=== PATIENT | female | born 1985 | race Caucasian/White ===

== ENCOUNTER 2016-08-27 21:56 | Emergency (ER) | payer OTHER ==
[~2016-08-27 21:56] MED LIST: ACET50TA PO; IBUP80TA PO; VITAPRTA PO
[2016-08-27] MEDS ORDERED: IBUPROFEN 600 MG TAB As Ordered ONE (23:37)
--- NOTE | 2016-08-28 00:15 | EDDOCDS ---
Nurse's Notes [facility] Name: Sunshine Ramsay Age: 30 yrs Sex: Female : 1985 Arrival Date: 08/27/2016 Time: 21:56 Bed PR1 / Private MD: KOFFI Toscano Diagnosis: Strain of muscle and tendon of front wall of thorax-right Presentation: 08/27 22:07 Presenting complaint: Patient states: that she has had chest pain for the past 2 weeks ms18 and increased pain upon inspiration. Aspirin was not taken prior to arrival. Adult Sepsis Screening: The patient does not have new or worsening altered mentation. Patient's respiratory rate is less than 22. Systolic blood pressure is greater than 100. Patient has a qSOFA score of 0- Negative Sepsis Screen. Suicide/Homicide risk assessment- the patient denies having any suicidal and/or homicidal ideations and does not present with any other emotional, behavioral or mental health complaints. 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 Transition of care: patient was not received from another setting of care. 22:07 Acuity: MANUEL Level 4 ms18 22:07 Method Of Arrival: Walkin/Carried/Asstd ms18 Triage Assessment: 22:09 General: Appears in no apparent distress, uncomfortable, Behavior is appropriate for ms18 age, cooperative. Pain: Location: diaphragm Pain currently is 7 out of 10 on a pain scale. Quality of pain is described as sharp, throbbing. HIV screening NA for this visit Offered previously. Neurological: No deficits noted. Cardiovascular: Chest pain is described as diffuse, quality is stabbing, radiates Does not radiate. episodes are intermittent began 2 weeks ago. Respiratory: Airway is patent Respiratory effort is even, unlabored, Denies shortness of breath. Derm: Skin is pink, warm & dry. 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 none - PMHx: none; - PSHx: none; - Social history: Smoking status: Patient states was never smoker of tobacco. No barriers to communication noted, The patient speaks fluent Syriac. - Family history: Not pertinent. - : The pt / caregiver states he / she is not on anticoagulants. Home medication list is obtained from the patient. - Exposure Risk Screening:: None identified. Screenin/03 00:12 Screening information is obtained from the patient. Fall risk: No risks identified. jmb Assistance ADL's: requires no assistance with activities of daily living. Abuse/DV Screen: The patient / caregiver reports he/she is: not in a situation that causes fear, pain or injury. Nutritional screening: No deficits noted. Advance Directives: Currently, there is no health care proxy. There is no active DNR order. There is no living will. There is no Power of Customer Service Teller. home support is adequate. Assessment: 00:12 General: Patient instructed on discharge instructions. Patient asked if there were any b questions regarding discharge, patient stated no. Patient signed discharge instructions. Patient discharged in stable condition.. Cardiovascular: Rhythm is regular. Vital Signs: 08/27 21:59 BP 112 / 63; Pulse 72; Resp 18 S; Temp 97.0(O); Pulse Ox 100% on R/A; Weight 65.32 kg gr2 (R); Height 65 in. (165.10 cm) (R); Pain 7/10; 08/28 00:12 BP 110 / 60; Pulse 78; Resp 18; Temp 98.0(O); Pulse Ox 99% on R/A; Pain 2/10; jmb 08/27 21:59 Body Mass Index 23.96 (65.32 kg, 165.10 cm) gr2 Vitals: 08/27 21:59 Log In Time: August 27, 2016 at 21:59. gr2 ED Course: 21:58 Patient visited by Larry Butler. gr2 21:58 Dorcas [facility] is Private Physician. gr2 21:58 Patient moved to Waiting gr2 21:59 Patient visited by Larry Butler. gr2 22:00 Patient moved to Pre RCE gr2 22:09 Triage Initiated ms18 22:56 Patient moved to Triage 1 jmb 23:21 John Amaro PA is PHCP. mo1 23:21 Wilfrid Guadarrama MD is Attending Physician. mo1 23:23 Patient visited by John Amaro PA. mo1 23:39 Patient moved to [facility] 23:43 [facility] Payment Agreement was scanned into [employer] and attached to record. lja 23:44 Patient name changed from Sunshine\S\\S\[place]\S\ to Sunshine\S\ \S\[place]. EDMS 08/28 00:04 KOFFI Toscano is Referral Physician. mo1 00:05 Patient moved to cz 00:12 The patient / caregiver is instructed regarding the plan of care and ED course. jmb deferred by provider. 00:12 No IV's were initiated during this patient's visit. No procedures done that require jmb assistance. Administered Medications: 08/27 23:38 Drug: Ibuprofen 600 mg [ibuprofen 600 mg tablet (1 tabs)] Route: PO; cz Order Results: There are currently no results for this order. Outcome: 08/28 00:04 Discharge ordered by Provider. mo1 00:12 Discharge Assessment: Patient awake, alert and oriented x 3. No cognitive and/or jmb functional deficits noted. Patient verbalized understanding of disposition instructions. Patient awake and alert. obeys commands, Oriented to person, place and time. Patient verbalized understanding of disposition instructions. Patient has no functional deficits. patient administered narcotics - no. The following High Risk Discharge criteria are identified: None. Discharged to home ambulatory, with significant other. Condition: stable. Discharge instructions given to patient, Instructed on discharge instructions, follow up and referral plans. medication usage, Demonstrated understanding of instructions, medications, Pt was receptive of discharge instructions/ teaching. No special radiology studies were completed. Property sent home with patient. 00:15 Patient left the ED. martyb Signatures: Dispatcher [employer] EDOK Stephen Milligan RN RN cz Larry Butler gr2 John Amaro PA PA mo1 Gaudencio Irwin RN RN jmb Smith, Mallory, RN RN ms18 Korin Tavares MTDD
--- NOTE | 2016-08-28 00:15 | EDDOCDS ---
Physician Documentation [facility] Name: Sunshine Ramsay Age: 30 yrs Sex: Female : 1985 Arrival Date: 08/27/2016 Time: 21:56 Bed PR / Private MD: KOFFI Toscano Disposition: 08/28/16 00:04 Discharged to Home/Self Care. Impression: Strain of muscle and tendon of front wall of thorax - right. - Condition is Stable. - Discharge Instructions: Chest Wall Pain, Cough, Adult, [id number]. - Prescriptions for Robaxin 500 mg Oral Tablet - take 2 tablet by ORAL route every 6 hours As needed; 40 tablet. - Medication Reconciliation, Local Pharmacy Hours form. - Follow up: KOFFI Toscano; When: Call to arrange an appointment; Reason: Recheck today's complaints, Continuance of care. - Problem is new. - Symptoms are unchanged. Historical: - Allergies: no known allergies; - Home Meds: 1. none - PMHx: none; - PSHx: none; - Social history: Smoking status: Patient states was never smoker of tobacco. No barriers to communication noted, The patient speaks fluent Malagasy. - Family history: Not pertinent. - : The pt / caregiver states he / she is not on anticoagulants. Home medication list is obtained from the patient. - Exposure Risk Screening:: None identified. 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 (165.10 cm) (R); Pain 7/10; 08/28 00:12 BP 110 / 60; Pulse 78; Resp 18; Temp 98.0(O); Pulse Ox 99% on R/A; Pain 2/10; jmb 08/27 21:59 Body Mass Index 23.96 (65.32 kg, 165.10 cm) gr2 MDM: 08/27 23:36 Ibuprofen 600 mg PO once ordered. mo1 23:37 Rib Unilat W/PA Chest Only Ordered. EDMS 23:43 [facility] Payment Agreement was scanned into [employer] and attached to record. [facility] 23:43 Financial registration complete. a Administered Medications: 23:38 Drug: Ibuprofen 600 mg [ibuprofen 600 mg tablet (1 tabs)] Route: PO; cz Signatures: Dispatcher [employer] John Donnelly PA PA mo1 Gaudencio IrwinRN RN Lucie Martinez RN RN ms18 Arel, Stephen Akbar RN cz The chart was reviewed and I authenticate all verbal orders and agree with the evaluation and treatment provided.Attachments: 23:43 [facility] Payment Agreement [facility] MTDD
--- NOTE | 2016-08-28 15:14 | REP ---
UNILATERAL RIGHT RIBS, PA CHEST: HISTORY: Cough. The lungs are clear. The heart is normal in size. The pulmonary vasculature is normal in appearance. The bony structure is intact. IMPRESSION: No acute disease. Signed by Adeel Weaver MD 08/28/2016 03:15 P
--- NOTE | 2016-08-30 01:15 | EDDOCDS ---
Physician Documentation [facility] Name: Sunshine Ramsay Age: 30 yrs Sex: Female : 1985 Arrival Date: 08/27/2016 Time: 21:56 Bed PR / Private MD: KOFFI Toscano Disposition: 08/28/16 00:04 Discharged to Home/Self Care. Impression: Strain of muscle and tendon of front wall of thorax - right. - Condition is Stable. - Discharge Instructions: Chest Wall Pain, Cough, Adult, [id number]-[id number]. - Prescriptions for Robaxin 500 mg Oral Tablet - take 2 tablet by ORAL route every 6 hours As needed; 40 tablet. - Medication Reconciliation, Local Pharmacy Hours form. - Follow up: KOFFI Toscano; When: Call to arrange an appointment; Reason: Recheck today's complaints, Continuance of care. - Problem is new. - Symptoms are unchanged. Historical: - Allergies: no known allergies; - Home Meds: 1. none - PMHx: none; - PSHx: none; - Social history: Smoking status: Patient states was never smoker of tobacco. No barriers to communication noted, The patient speaks fluent Sri Lankan. - Family history: Not pertinent. - : The pt / caregiver states he / she is not on anticoagulants. Home medication list is obtained from the patient. - Exposure Risk Screening:: None identified. 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 (165.10 cm) (R); Pain 7/10; 08/28 00:12 BP 110 / 60; Pulse 78; Resp 18; Temp 98.0(O); Pulse Ox 99% on R/A; Pain 2/10; jmb 08/27 21:59 Body Mass Index 23.96 (65.32 kg, 165.10 cm) gr2 MDM: 08/27 23:36 Ibuprofen 600 mg PO once ordered. mo1 23:37 Rib Unilat W/PA Chest Only Ordered. EDMS 23:43 [facility] Payment Agreement was scanned into [employer] and attached to record. [facility] 23:43 Financial registration complete. [facility] 08/28 04:43 T-Sheet-- Draft Copy was scanned into [employer] and attached to record. torres Administered Medications: 08/27 23:38 Drug: Ibuprofen 600 mg [ibuprofen 600 mg tablet (1 tabs)] Route: PO; cz Signatures: Dispatcher [employer] John Donnelly PA PA mo1 Gaudencio Irwin RN RN Lucie Martinez RN RN ms18 Arel, Stephen Akbar RN cz The chart was reviewed and I authenticate all verbal orders and agree with the evaluation and treatment provided.Attachments: 23:43 [facility] Payment Agreement 08/28 04:43 T-Sheet-- Draft Copy [facility] Chart Complete MTDD
--- NOTE | 2016-08-30 01:15 | EDDOCDS ---
Physician Documentation [facility] Name: Sunshine Ramsay Age: 30 yrs Sex: Female : 1985 Arrival Date: 08/27/2016 Time: 21:56 Bed PR / Private MD: KOFFI Toscano Disposition: 08/28/16 00:04 Discharged to Home/Self Care. Impression: Strain of muscle and tendon of front wall of thorax - right. - Condition is Stable. - Discharge Instructions: Chest Wall Pain, Cough, Adult, Xkvh-[id number]. - Prescriptions for Robaxin 500 mg Oral Tablet - take 2 tablet by ORAL route every 6 hours As needed; 40 tablet. - Medication Reconciliation, Local Pharmacy Hours form. - Follow up: KOFFI Toscano; When: Call to arrange an appointment; Reason: Recheck today's complaints, Continuance of care. - Problem is new. - Symptoms are unchanged. Historical: - Allergies: no known allergies; - Home Meds: 1. none - PMHx: none; - PSHx: none; - Social history: Smoking status: Patient states was never smoker of tobacco. No barriers to communication noted, The patient speaks fluent [place] Of [place]. - Family history: Not pertinent. - : The pt / caregiver states he / she is not on anticoagulants. Home medication list is obtained from the patient. - Exposure Risk Screening:: None identified. 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 (165.10 cm) (R); Pain 7/10; 08/28 00:12 BP 110 / 60; Pulse 78; Resp 18; Temp 98.0(O); Pulse Ox 99% on R/A; Pain 2/10; jmb 08/27 21:59 Body Mass Index 23.96 (65.32 kg, 165.10 cm) gr2 MDM: 08/27 23:36 Ibuprofen 600 mg PO once ordered. mo1 23:37 Rib Unilat W/PA Chest Only Ordered. EDMS 23:43 [facility] [place] Payment Agreement was scanned into [employer] and attached to record. [facility] 23:43 Financial registration complete. [facility] 08/28 04:43 T-Sheet-- Draft Copy was scanned into [employer] and attached to record. torres Administered Medications: 08/27 23:38 Drug: Ibuprofen 600 mg [ibuprofen 600 mg tablet (1 tabs)] Route: PO; cz Signatures: Dispatcher [employer] John Donnelly PA PA mo1 Gaudencio Irwin RN RN Lucie Martinez RN RN ms18 Arel, Stephen Akbar RN cz The chart was reviewed and I authenticate all verbal orders and agree with the evaluation and treatment provided.Attachments: 23:43 [facility] Payment Agreement 08/28 04:43 T-Sheet-- Draft Copy [facility] Chart Complete MTDD
--- NOTE | 2016-08-30 01:15 | EDDOCDS ---
Nurse's Notes [facility] Name: Sunshine Ramsay Age: 30 yrs Sex: Female : 1985 Arrival Date: 08/27/2016 Time: 21:56 Bed PR1 / Private MD: KOFFI Toscano Diagnosis: Strain of muscle and tendon of front wall of thorax-right Presentation: 08/27 22:07 Presenting complaint: Patient states: that she has had chest pain for the past 2 weeks ms18 and increased pain upon inspiration. Aspirin was not taken prior to arrival. Adult Sepsis Screening: The patient does not have new or worsening altered mentation. Patient's respiratory rate is less than 22. Systolic blood pressure is greater than 100. Patient has a qSOFA score of 0- Negative Sepsis Screen. Suicide/Homicide risk assessment- the patient denies having any suicidal and/or homicidal ideations and does not present with any other emotional, behavioral or mental health complaints. 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 Transition of care: patient was not received from another setting of care. 22:07 Acuity: MANUEL Level 4 ms18 22:07 Method Of Arrival: Walkin/Carried/Asstd ms18 Triage Assessment: 22:09 General: Appears in no apparent distress, uncomfortable, Behavior is appropriate for ms18 age, cooperative. Pain: Location: diaphragm Pain currently is 7 out of 10 on a pain scale. Quality of pain is described as sharp, throbbing. HIV screening NA for this visit Offered previously. Neurological: No deficits noted. Cardiovascular: Chest pain is described as diffuse, quality is stabbing, radiates Does not radiate. episodes are intermittent began 2 weeks ago. Respiratory: Airway is patent Respiratory effort is even, unlabored, Denies shortness of breath. Derm: Skin is pink, warm & dry. 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 none - PMHx: none; - PSHx: none; - Social history: Smoking status: Patient states was never smoker of tobacco. No barriers to communication noted, The patient speaks fluent Thai. - Family history: Not pertinent. - : The pt / caregiver states he / she is not on anticoagulants. Home medication list is obtained from the patient. - Exposure Risk Screening:: None identified. Screenin/03 00:12 Screening information is obtained from the patient. Fall risk: No risks identified. jmb Assistance ADL's: requires no assistance with activities of daily living. Abuse/DV Screen: The patient / caregiver reports he/she is: not in a situation that causes fear, pain or injury. Nutritional screening: No deficits noted. Advance Directives: Currently, there is no health care proxy. There is no active DNR order. There is no living will. There is no Power of School Guard. home support is adequate. Assessment: 00:12 General: Patient instructed on discharge instructions. Patient asked if there were any b questions regarding discharge, patient stated no. Patient signed discharge instructions. Patient discharged in stable condition.. Cardiovascular: Rhythm is regular. Vital Signs: 08/27 21:59 BP 112 / 63; Pulse 72; Resp 18 S; Temp 97.0(O); Pulse Ox 100% on R/A; Weight 65.32 kg gr2 (R); Height 65 in. (165.10 cm) (R); Pain 7/10; 08/28 00:12 BP 110 / 60; Pulse 78; Resp 18; Temp 98.0(O); Pulse Ox 99% on R/A; Pain 2/10; jmb 08/27 21:59 Body Mass Index 23.96 (65.32 kg, 165.10 cm) gr2 Vitals: 08/27 21:59 Log In Time: August 27, 2016 at 21:59. gr2 ED Course: 21:58 Patient visited by Larry Butler. gr2 21:58 Dorcas [facility] is Private Physician. gr2 21:58 Patient moved to Waiting gr2 21:59 Patient visited by Larry Butler. gr2 22:00 Patient moved to Pre RCE gr2 22:09 Triage Initiated ms18 22:56 Patient moved to Triage 1 jmb 23:21 John Amaro PA is PHCP. mo1 23:21 Wilfrid Guadarrama MD is Attending Physician. mo1 23:23 Patient visited by John Amaro PA. mo1 23:39 Patient moved to [facility] 23:43 [facility] Payment Agreement was scanned into [employer] and attached to record. lja 23:44 Patient name changed from Sunshine\S\\S\[place]\S\ to Sunshine\S\ \S\[place]. EDMS 08/28 00:04 KOFFI Toscano is Referral Physician. mo1 00:05 Patient moved to cz 00:12 The patient / caregiver is instructed regarding the plan of care and ED course. jmb deferred by provider. 00:12 No IV's were initiated during this patient's visit. No procedures done that require jmb assistance. 04:43 T-Sheet-- Draft Copy was scanned into [employer] and attached to record. [facility] 15:51 Rib Unilat W/PA Chest Only Returned. EDMS Administered Medications: 08/27 23:38 Drug: Ibuprofen 600 mg [ibuprofen 600 mg tablet (1 tabs)] Route: PO; cz Order Results: Radiology Order: Rib Unilat W/PA Chest Only Test: Rib Unilat W/PA Chest Only REASON FOR EXAMINATION: Cough; UNILATERAL RIGHT RIBS, PA CHEST:; ; HISTORY: Cough.; ; The lungs are clear. The heart is normal in size. The pulmonary vasculature is; normal in appearance. The bony structure is intact.; ; IMPRESSION:; ; No acute disease.; ; ; Signed by; Adeel Weaver MD 08/28/2016 03:15 P; Outcome: 08/28 00:04 Discharge ordered by Provider. mo1 00:12 Discharge Assessment: Patient awake, alert and oriented x 3. No cognitive and/or jmb functional deficits noted. Patient verbalized understanding of disposition instructions. Patient awake and alert. obeys commands, Oriented to person, place and time. Patient verbalized understanding of disposition instructions. Patient has no functional deficits. patient administered narcotics - no. The following High Risk Discharge criteria are identified: None. Discharged to home ambulatory, with significant other. Condition: stable. Discharge instructions given to patient, Instructed on discharge instructions, follow up and referral plans. medication usage, Demonstrated understanding of instructions, medications, Pt was receptive of discharge instructions/ teaching. No special radiology studies were completed. Property sent home with patient. 00:15 Patient left the ED. jmb Signatures: Dispatcher [employer] EDMT Stephen Milligan RN RN cz Larry Butler gr2 John Amaro PA PA mo1 Gaudencio Irwin RN RN Lucie Martinez,[place] RN ms18 Arel, Korin macdonald Chart Complete MTDD
== END 2016-08-28 00:15 | disposition home or self-care (01) ==
LOC: M ED 21:56
DX: S29.011A Strain of muscle and tendon of front wall of thorax, initial encounter (principal); X58.XXXA Exposure to other specified factors, initial encounter; Y92.019 Unspecified place in single-family (private) house as the place of occurrence of the external cause; Y93.89 Activity, other specified; Y99.8 Other external cause status

== ENCOUNTER 2017-07-26 05:42 | Emergency (ER) | payer OTHER ==
[~2017-07-26] VITALS: Ht 165.1 cm; Wt 62.0 kg
--- NOTE | 2017-07-26 08:53 | REP ---
Right anterior chest wall ultrasound: History: Painful lump below the right breast extending from the midline. Sonographic findings: Scanning over the palpable area along the right costal margin demonstrates normal costal cartilages in the right parasternal region. No soft tissue cyst, mass or other abnormality is seen. Impression: Negative soft-tissue ultrasound. No mass lesion seen. Directed scanning is along the parasternal and right costal margin region. Normal costal cartilage is seen. Signed by Gildardo Abbasi MD 07/26/2017 09:37 A
[2017-07-26 09:06] VITALS: BP 101/65
== END 2017-07-26 09:07 | disposition home or self-care (01) ==
LOC: M ED 05:42
DX: R07.89 Other chest pain (principal); R59.1 Generalized enlarged lymph nodes

== ENCOUNTER 2018-06-02 02:53 | Emergency (ER) | payer OTHER ==
[2018-06-02 04:13] LABS: INFLUENZA A AMPLIFICATION NEGATIVE (NEGATIVE); INFLUENZA B AMPLIFICATION NEGATIVE (NEGATIVE)
== END 2018-06-02 04:26 | disposition home or self-care (01) ==
LOC: M ED 02:53
DX: J06.9 Acute upper respiratory infection, unspecified (principal); J40 Bronchitis, not specified as acute or chronic
CPT/HCPCS: 71046

== ENCOUNTER 2019-01-16 19:01 | Emergency (ER) | payer OTHER ==
[~2019-01-16] VITALS: Ht 165.1 cm; Wt 71.8 kg
[~2019-01-16 19:01] MED LIST changes: -ACET50TA PO; +MAPA500T2 PO; +NEXP1IMP SC; +PRED20TA PO; +ZITHTAB PO
[2019-01-16] MEDS ORDERED: IBUP200C25 PO (19:07)
[2019-01-16] MEDS ORDERED: METHOCARBAMOL 750 MG TAB PO ONE (20:30)
[2019-01-16] MEDS ORDERED: LIDOCAINE 5% (LIDODERM) PATCH TD ONE (20:30)
[2019-01-16] MEDS ORDERED: IBUPROFEN 600 MG TAB PO ONE (20:30)
[2019-01-16] MEDS ORDERED: ONDANSETRON 4 MG ORAL DISINTEGRATING TAB (Q0162 PER 1MG) PO ONE (20:45)
[2019-01-16] MEDS ORDERED: **NOTE PATIENT COMMENT** MISC XX SCH (21:00)
[2019-01-16] MEDS ORDERED: IBUP-1022 PO (22:02)
[2019-01-16] MEDS ORDERED: ROBA500T PO (22:02)
[2019-01-16 22:03] VITALS: BP 97/52
--- NOTE | 2019-01-17 09:38 | REP ---
Clinical: Trauma/fall with acute tenderness . Technique: AP, lateral, bilateral oblique, and coned-down views. Findings: Alignment and lordosis is maintained. The vertebral bodies including transverse process and spinous processes are intact and normal. There is no evidence for acute fracture / compression injury or subluxation. No evidence for spondylolysis or spondylolisthesis. No significant degenerative change is noted. Impression: No acute fracture / compression injury or subluxation. Electronically Signed by Michael Tobias MD 01/17/2019 09:29 A
--- NOTE | 2019-01-17 09:39 | REP ---
Clinical: Trauma/fall with thoracic pain. Technique: AP, lateral, and swimmers views. Findings: Alignment and kyphosis is maintained. Vertebral bodies intact. No acute fracture / compression injury or subluxation. No degenerative changes. Paravertebral soft tissues are normal. Impression: Normal thoracic spine series. No acute fracture / compression injury or subluxation. Electronically Signed by Michael Tobias MD 01/17/2019 09:30 A
== END 2019-01-16 22:09 | disposition home or self-care (01) ==
LOC: M ED 19:01
DX: S20.229A Contusion of unspecified back wall of thorax, initial encounter (principal); W10.8XXA Fall (on) (from) other stairs and steps, initial encounter; Y92.89 Other specified places as the place of occurrence of the external cause; Z79.3 Long term (current) use of hormonal contraceptives
CPT/HCPCS: 72072; 72110; 99283; Q0162

== ENCOUNTER → 2020-01-07 | Outpatient (CLI) | payer OTHER ==
[~2020-01-07] MED LIST changes: +IBUP-1022 PO; +IBUP200C25 PO; +ROBA500T PO
--- NOTE | 2020-01-08 03:15 | REP ---
Clinical: Dating and viability. Technique: Transabdominal first trimester obstetrical ultrasound with color Doppler evaluation. Findings: Ultrasound examination demonstrates single live early intrauterine . CRL of 4.2 cm corresponds to 11 weeks 0 days gestational age with estimated date of delivery 07/28/2020. heart rate equals 175 beats per minute. Impression: Single live early intrauterine at 11 weeks 0 days gestational age. Complete anatomical assessment should be performed at 19-20 weeks. Electronically Signed by Michael Tobias MD 01/08/2020 03:06 A
== END ==
LOC: M RAD 15:23
PROVIDERS: ATTEND Nurse Practitioner Women's Health
DX: Z34.91 Encounter for supervision of normal pregnancy, unspecified, first trimester (principal)

== ENCOUNTER 2020-02-24 18:01 | Emergency (ER) | payer OTHER ==
[2020-02-24] MEDS ORDERED: NS 1,000 ML IV ONE ×2 (18:30→20:30)
[2020-02-24 18:39] LABS: BASO % 0.4 % (0.0-1.0); EOS # 0.2 10^3/uL (0.0-0.5); EOS % 1.7 % (0.0-3.0); HEMATOCRIT 32.6 % (36.0-47.0); HEMOGLOBIN 11.3 g/dl (12.0-15.5); LYMPH # 1.7 10^3/uL (1.5-5.0); LYMPH % 15.8 % (24.0-44.0); MEAN CORPUSCULAR HEMOGLOBIN 31.1 pg (27.0-33.0); MEAN CORPUSCULAR HGB CONC 34.7 g/dl (32.0-36.5); MEAN CORPUSCULAR VOLUME 89.8 fl (80.0-96.0); MONO # 0.7 10^3/uL (0.0-0.8); MONO % 6.8 % (0.0-5.0); NEUTROPHILS % 74.1 % (36.0-66.0); PLATELET COUNT, AUTOMATED 195 10^3/uL (150-450); RED BLOOD COUNT 3.63 10^6/uL (4.00-5.40); WHITE BLOOD COUNT 10.7 10^3/uL (4.0-10.0)
[2020-02-24 19:11] LABS: ETHYL ALCOHOL (ETHANOL) < 0.003 % (0.000-0.010); FREE T4 0.92 NG/DL (0.76-1.46); MAGNESIUM LEVEL 1.8 MG/DL (1.8-2.4)
[2020-02-24] MEDS ORDERED: METOCLOPRAMIDE INJ 10MG/2ML VIAL (J2765 PER 1) IV ONE (20:30)
[2020-02-24] MEDS ORDERED: ACETAMINOPHEN *IV* 1,000 MG in IV 1 EA IV ONE (20:30)
[2020-02-24 20:36] LABS: AMPHETAMINES LEVEL URINE NEGATIVE (NEGATIVE); BARBITURATES URINE NEGATIVE (NEGATIVE); BENZODIAZEPINES URINE NEGATIVE (NEGATIVE); CANNABINOIDS URINE NEGATIVE (NEGATIVE); COCAINE METABOLITE URINE NEGATIVE (NEGATIVE); METHADONE URINE NEGATIVE (NEGATIVE); OPIATES URINE NEGATIVE (NEGATIVE); PHENCYCLIDINE URINE NEGATIVE (NEGATIVE)
--- NOTE | 2020-02-24 22:04 | REPVR ---
PROCEDURE INFORMATION: Exam: US After First Trimester, Transabdominal Exam date and time: 02/24/2020 9:02 PM Age: 34 years old Clinical indication: Other: Adnexal pain; Gestational age or lmp: 17wks; ; Additional info: Pelvic pain TECHNIQUE: Imaging protocol: Real-time transabdominal obstetrical ultrasound of the maternal pelvis and a second or third trimester with image documentation. COMPARISON: CR Spine. Lumbosacral, complete 01/16/2019 8:39 PM FINDINGS: Gestation: Single live intrauterine gestation. Heart rate: 142 bpm. Presentation: Live intrauterine gestation in breech position. Placenta: Unremarkable. No subchorionic bleed. Placenta is anterior. Amniotic fluid index: 12.8 cm. DOPPLER: Umbilical artery Doppler: Umbilical cord SD ratio: 2.93. MATERNAL ANATOMY: Uterus: Unremarkable. Cervix: Cervix measures 3.1 cm. No cervical funneling. Right adnexa: Ovary is obscured by overlying bowel gas. Left adnexa: Ovary is obscured by overlying bowel gas. IMPRESSION: Unremarkable obstetric ultrasound. Electronically signed by: Gonzalez Ha On 02/24/2020 22:04:40 PM
[2020-02-24] MEDS ORDERED: REGL10TA6 PO ×2 (22:34→23:43)
[2020-02-24 23:45] VITALS: BP 100/56
--- NOTE | 2020-02-25 06:26 | ECGEPIP ---
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
== END 2020-02-24 23:52 | disposition home or self-care (01) ==
LOC: EDBD 18:01 → M ED 18:01
DX: O99.352 Diseases of the nervous system complicating pregnancy, second trimester (principal); G43.909 Migraine, unspecified, not intractable, without status migrainosus; R55 Syncope and collapse; Z3A.17 17 weeks gestation of pregnancy
CPT/HCPCS: 36415; 76815; 80047; 80307; 81001; 83735; 84439; 84443; 85025; 93005; 93041; 94760; 96361; 96374; 96375; 99285; G0480; J0131; J2765

== ENCOUNTER 2020-08-04 19:16 | Inpatient (IN) | payer OTHER ==
[~2020-08-04] VITALS: Ht 165.1 cm; Wt 103.8 kg
[~2020-08-04 19:16] MED LIST changes: +REGL10TA6 PO
[2020-08-04] MEDS ORDERED: PRENTAB9 PO (20:43)
[2020-08-04] MEDS ORDERED: LIDO1.1P TOP (20:43)
[2020-08-04] MEDS ORDERED: LR 1,000 ML IV SCH (21:13)
[2020-08-04] MEDS ORDERED: OXYTOCIN DRIP 30 UNITS in IV 1 EA IV SCH (21:15)
--- NOTE | 2020-08-04 21:28 | HPEPDOC ---
Obstetrical History & Physical General Date of Admission Aug 04, 2020 at 19:16 History of Present Illness 34yo at 41+0 by 11wk US DORINDA [id number] presents for IOL for late term. Dennys ed VB, LOF, decreased FM, contractions. Denied n/b/d, cp, sob, fermin, visual changes, f/c, vaginal dc, urinary sx. 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 Past Medical History Medical History anxiety, depression, chronic back pain / degenerating discs, chronic hip pain, cervical dysplasia Surgical History: Denies/None Family History Significant Family History: No pertinent family hx Social History Marital Status: Family situation: Spouse/partner home * Smoker: non-smoker Alcohol: Denies Drugs: denies Imunizations Tdap status: current Influenza Status: needs Allergies Coded Allergies: No Known Allergies (Unverified , 06/02/18) Medications Scheduled Lidocaine/Menthol (Lidopatch) 1 Each Adh..patch, 1 APLCT TOP BID for Diabetes No.137/Iron/Folic Acd ( Vitamin Tablet) 1 Each Tablet, 1 TAB PO DAILY Physical Examination Physical Examination GENERAL: Alert and oriented times three. BREAST: . ABDOMEN: Gravid and non-tender to touch. FETUS: vertex by US HEART RATE: Regular rate and rhythm. LUNGS: Clear to auscultation (CTA). EXTREMITIES: No edema. No clonus. Laboratory Data [facility] Laboratory Tests 2 08/04/20 19:32: Serology Scanned Report Hepatitis B Testing Urine Culture: No Growth Pertinent Laboratoy Data Blood Type: O+ RBC Antibody Screen: Negative HIV: Negative Hepatitis B: Negative Rapid Plasma Reagin: Nonreactive Rubella: Immune Varicella: Immune Chlamydia/Gonorrhea: Negative Group B Streptococcus: Negative Quad Screen Test: Negative Cystic Fibrosis: Negative Anatomy Ultrasound Placenta Location: Anterior Normal Anatomy: Yes Placenta Previa: No Estimated Weight (grams): 3800 Vaginal Examination Dilation: 3 cm Effacement: 50% Station: -3 Presentation: Cephalic presentation (by US) Assessment Heart Rate (FHR): 140 Variability: Moderate Accelerations: Positive Decelerations: None Tocometer Contractions: Yes Frequency: irregular Multi-drug resistant Organism: No history of MDRO Assessment/Plan Assessment 34yo at 41+0 presents for IOL for late term. CAT I tracing, reactive, normal VS. SVE /-3. APC 1. AMA - normal quad and US 2. elevated 1h normal 3h GTT 3. cervical dysplasia - needs cotesting 4. chronic pain / DDD 5. anxiety/depression - sees 6. excessive weight gain 67# Rh pos, GBS neg, placenta anterior, EFW 3800, ceph by US, PP 7#7 Plan Admit and orient. Examination Supervisor and consent. Diet: clears Group B Streptococcus (GBS) [negative]. Labs and intravenous (IV) per unit protocol. Counseled on Pitocin and induction of labor (IOL). Lactated Ringers (LR): Bolus mL, then at mL/hr. Anticipate [normal spontaneous delivery ()]. C-S as appropriate. STEFANO DESAI DO Aug 04, 2020 21:28
[2020-08-04 21:33] LABS: HEMATOCRIT 36.7 % (36.0-47.0); MEAN CORPUSCULAR HEMOGLOBIN 29.2 pg (27.0-33.0); MEAN CORPUSCULAR HGB CONC 32.7 g/dl (32.0-36.5); MEAN CORPUSCULAR VOLUME 89.3 fl (80.0-96.0); PLATELET COUNT, AUTOMATED 207 10^3/uL (150-450); RED BLOOD COUNT 4.11 10^6/uL (4.00-5.40); WHITE BLOOD COUNT 10.5 10^3/uL (4.0-10.0)
[2020-08-05] VITALS (21 sets, daily range): BP systolic 101–174; BP diastolic 56–96
[2020-08-05] MEDS ORDERED: FENTANYL 2MCG/ML ROPIVACAINE 0.2% IN 0.9% NACL 100ML IVBAG As Ordered ONE (00:44)
[2020-08-05] MEDS ORDERED: REFRIGERATOR IV KEYS XX PRN (01:00)
[2020-08-05] MEDS ORDERED: FENTANYL/ROPIVACAINE/NACL BAG 100 ML EPIDURAL SCH (01:00)
[2020-08-05] MEDS ORDERED: NALOXONE INJ 0.4MG/1ML VIAL (J2310 PER 1MG) IV PRN (01:00)
[2020-08-05] MEDS ORDERED: EPIDURAL COMMENT XX SCH (01:00)
[2020-08-05] MEDS ORDERED: ONDANSETRON 4MG/2ML VIAL IV PRN ×2 (01:00→02:15)
[2020-08-05] MEDS ORDERED: LACTATED RINGER'S 1000 ML IV PRN (01:00)
[2020-08-05] MEDS ORDERED: diphenhydrAMINE 50MG/ML VIAL (J1200) IV PRN (01:00)
[2020-08-05] MEDS ORDERED: ePHEDrine SULFATE 25 MG/5 ML(5MG/ML) SYRINGE IV PRN (01:00)
[2020-08-05] MEDS ORDERED: EPIDURAL/PCA KEYS XX PRN (01:00)
--- NOTE | 2020-08-05 01:55 | IPNPDOC ---
Obstetrical Progress Note Date of Service Aug 05, 2020 Subjective Nursing update and strip note. Assessment Heart Rate (FHR): 130 Variability: Moderate Accelerations: Positive Decelerations: None Heart Rate Tracing: Category I Tocometer Contractions: Yes Frequency: regular Sterile Vaginal Examination Dilation: 4 cm Effacement (%): 80% Station: -2 (exam per RN) Assessment and Plan Status: Reassuring Group B Streptococcus: Negative Anticipate: Vaginal Delivery Additional Comments CAT I tracing reactive. Patient progressing well with pitocin she SROMed at 0040 clear per RN. RN exam 4/80/-2 and she reports patient has increased pressure and pain and has received epidural. Will reassess in 4-6h or sooner if clinically indicated. STEFANO DESAI DO Aug 05, 2020 01:55
[2020-08-05] MEDS ORDERED: ONDANSETRON 4MG/2ML VIAL As Ordered ONE (02:22)
[2020-08-05 04:38] LABS: CORD GAS ABE A -4.5; CORD GAS ABE V -3.8; CORD GAS HCO3 A 21.3 MEQ/L; CORD GAS HCO3 V 21.4 MEQ/L; CORD GAS O2 SAT A 89.2 %; CORD GAS PCO2 A 41.7 mmHg; CORD GAS PCO2 V 39.4 mmHg; CORD GAS PH A 7.326 UNITS; CORD GAS PH V 7.352 UNITS; CORD GAS PO2 A 48.7 mmHg; CORD GAS PO2 V 112.9 mmHg; CORD GAS SBC A 20.6 MEQ/L; CORD GAS SBC V 21.4 MEQ/L; CORD GAS TCO2 A 22.6 MEQ/L; CORD GAS TCO2 V 22.6 MEQ/L
[2020-08-05] MEDS ORDERED: OXYTOCIN DRIP 30 UNITS in IV 1 EA IV SCH (04:50)
--- NOTE | 2020-08-05 04:57 | DNPDOC ---
[facility] Delivery Note Delivery Note DATE OF DELIVERY: 08/05/20 PREDELIVERY DIAGNOSIS: 41+1/7 weeks' gestation and labor. POST DELIVERY DIAGNOSIS: Delivered. PROCEDURE: Spontaneous vaginal delivery PLASTERER HELPER: Dr. Benjie Cervantes DO ANESTHESIA: epidural ESTIMATED BLOOD LOSS: 200 mL. FINDINGS: 4180g , Score 7/9, nuchal cord times 0. DELIVERY SUMMARY: 34yo G2 now P2 induced for late term with pitocin spontaneously ruptured and progressed to C/C/+3 and with good maternal effort delivered the head in a AIDA position. The left anterior shoulder was delivered followed by the corpus with bonita downward traction. The baby had spontaneous movement and cry. Cord gasses and blood were obtained. The placenta was delivered with bonita downward traction and was intact. There was a small abrasion on the right labia and left perineum that were hemostatic and did not require repair. A 1MLL was repaired with a figure of 8 with 2-0 vicryl. The uterus remained firm and bleeding scant. There were no complications. BENJIE Mejia DO Aug 05, 2020 04:57
[2020-08-05] MEDS ORDERED: BENZOCAINE 20% HEMORRHOIDAL OINTMENT 28GM TUBE TOP PRN (05:00)
[2020-08-05] MEDS ORDERED: DOCUSATE SODIUM 100MG CAPSULE PO PRN (05:00)
[2020-08-05] MEDS ORDERED: IBUPROFEN 600MG TAB PO PRN (05:00)
[2020-08-05] MEDS ORDERED: ACETAMINOPHEN TAB 650MG DOSE (2X325MG) PO PRN (05:00)
[2020-08-05] MEDS: IBUPROFEN 800 MG TAB PO PRN ×2 (06:32→15:56)
[2020-08-05] MEDS: PRENATAL VITAMINS CHEWABLE TABLET PO SCH (10:14)
[2020-08-05] MEDS: ACETAMINOPHEN 500 MG TAB PO PRN (17:52)
[2020-08-05] MEDS ORDERED: SIMETHICONE 80 MG CHEW TAB PO PRN (21:00)
[2020-08-06 05:53] VITALS: BP 106/66
[2020-08-06] MEDS ORDERED: PRENCHW PO (06:21)
[2020-08-06] MEDS ORDERED: DOK1CAP7 PO (06:21)
[2020-08-06] MEDS ORDERED: IBUP-1022 PO (06:21)
[2020-08-06] MEDS: ACETAMINOPHEN 500 MG TAB PO PRN (07:28)
[2020-08-06] MEDS: PRENATAL VITAMINS CHEWABLE TABLET PO SCH (09:26)
[2020-08-06] MEDS: IBUPROFEN 800 MG TAB PO PRN (17:26)
== END 2020-08-06 18:15 | disposition home or self-care (01) | DRG 807 ==
LOC: M LDI 19:16 → M OBS 08-05 06:00
PROVIDERS: ADMIT Obstetrics & Gynecology; ATTEND Obstetrics & Gynecology
PROC: 0HQ9XZZ Repair Perineum Skin, External Approach (ICD-10-PCS; 2020-08-04)
PROC: 3E033VJ Introduction of Other Hormone into Peripheral Vein, Percutaneous Approach (ICD-10-PCS; 2020-08-04)
PROC: 10E0XZZ Delivery of Products of Conception, External Approach (ICD-10-PCS; principal; 2020-08-05)
DX: O48.0 Post-term pregnancy (principal); Z37.0 Single live birth; Z3A.41 41 weeks gestation of pregnancy; O99.344 Other mental disorders complicating childbirth; F32.9 Major depressive disorder, single episode, unspecified; F41.9 Anxiety disorder, unspecified; O26.03 Excessive weight gain in pregnancy, third trimester; O70.0 First degree perineal laceration during delivery